=== PATIENT | male | born 1955 | race Caucasian/White ===

== ENCOUNTER 2024-04-09 10:49 | Day surgery (SDC) | payer MEDICARE ==
[~2024-04-09 10:49] MED LIST: ERYT.5TO LEFTEYE; EUTHYROX125 MCG PO; FAMO20; GABA300 PO; Lidocaine HCl 2% 10 ML SDA ONE; MELO7.5; Prozac40 MG PO; ROSUVASTATIN CA10 MG PO; Ropivacaine 0.5% HCL/PF 5 MG/ML 30ML Vial ONE; TAMS.4ER PO; TESTOSTERONE75 G1 TD; TRAZ150T57 PO; WARF10 PO
== END 2024-04-09 11:00 | disposition home or self-care (01) ==
LOC: ORSCSDS 10:49
DX: M79.671 Pain in right foot (principal); M20.5X1 Other deformities of toe(s) (acquired), right foot; M20.11 Hallux valgus (acquired), right foot; Z53.9 Procedure and treatment not carried out, unspecified reason
CPT/HCPCS: J2003; J2795

== ENCOUNTER 2024-04-13 16:11 | Emergency (ER) | payer MEDICARE ==
[~2024-04-13] VITALS: Ht 177.8 cm; Wt 90.7 kg
[~2024-04-13 16:11] MED LIST changes: -Lidocaine HCl 2% 10 ML SDA ONE; -Ropivacaine 0.5% HCL/PF 5 MG/ML 30ML Vial ONE
[2024-04-13] MEDS ORDERED: Diazepam 5 MG / ML 2ML SYR IV ONE (17:50)
[2024-04-13 18:01] LABS: BASOPHILS ABSOLUTE AUTO 0.05 K/mm3 (0.00-0.23); BASOPHILS PERCENT AUTO 1 % (0-2); EOSINOPHILS ABSOLUTE AUTO 0.25 K/mm3 (0.00-0.68); EOSINOPHILS PERCENT AUTO 3 % (0-6); Hematocrit 47.3 % (37.0-53.0); Hemoglobin 16.1 g/dL (13.5-17.5); IMMATURE GRAN ABSOLUTE AUTO 0.03 K/mm3 (0.00-0.10); IMMATURE GRAN PERCENT AUTO 0 % (0-1); LYMPHOCYTES ABSOLUTE AUTO 1.09 K/mm3 (0.84-5.20); LYMPHOCYTES PERCENT AUTO 14 % (21-46); MONOCYTES ABSOLUTE AUTO 0.78 K/mm3 (0.16-1.47); MONOCYTES PERCENT AUTO 10 % (4-13); Mean Corpuscular HGB 31.1 pg (26.0-34.0); Mean Corpuscular Volume 91 fL (80-100); Mean Platelet Volume 9.7 fL (9.1-12.4); NEUTROPHILS ABSOLUTE AUTO 5.61 K/mm3 (1.96-9.15); NEUTROPHILS PERCENT AUTO 72 % (41-73); Platelet Count 183 K/mm3 (150-400); RDW Coefficient Variation 13.6 % (11.7-14.2); RDW Standard Deviation 46.4 fL (35.1-46.3); Red Blood Cell Count 5.18 M/mm3 (4.30-5.90); White Blood Cell Count 7.81 K/mm3 (4.00-11.30)
[2024-04-13 18:15] LABS: International Normalized Ratio 1.36; Prothrombin Time Results 14.2 Sec (9.7-11.5)
[2024-04-13] MEDS ORDERED: Valium5 MG PO (19:19)
[2024-04-13] MEDS ORDERED: OXAYDO5 M1 PO (19:19)
[2024-04-13 19:47] VITALS: BP 119/73
== END 2024-04-13 20:01 | disposition home or self-care (01) ==
LOC: ER 16:11
PROVIDERS: Emergency Medicine
DX: S76.912A Strain of unspecified muscles, fascia and tendons at thigh level, left thigh, initial encounter (principal); W18.40XA Slipping, tripping and stumbling without falling, unspecified, initial encounter; Z88.1 Allergy status to other antibiotic agents; Z79.899 Other long term (current) drug therapy; Z79.890 Hormone replacement therapy; Z79.01 Long term (current) use of anticoagulants
CPT/HCPCS: 76882; 85025; 85610; 96374; 99284-25; J3360

== ENCOUNTER 2024-05-07 10:48 | Day surgery (SDC) | payer MEDICARE ==
[~2024-05-07] VITALS: Ht 177.8 cm; Wt 96.4 kg
[~2024-05-07 10:48] MED LIST changes: +OXAYDO5 M1 PO; +Valium5 MG PO
[2024-05-07] MEDS ORDERED: Lidocaine HCl 2% 10 ML SDA ONE (10:58)
[2024-05-07] MEDS ORDERED: EPINEPhrine HCl 1 MG/ML 1ML Amp ONE (10:59)
[2024-05-07] MEDS ORDERED: CeFAZolin Sodium 2,000 MG VIAL ONE (10:59)
[2024-05-07] MEDS ORDERED: Lactated Ringer's 1,000 ML IV ONE (11:34)
[2024-05-07] MEDS ORDERED: Ondansetron HCl 2 MG / ML 2ML Vial ONE ×2 (11:56→12:34)
[2024-05-07] MEDS ORDERED: Metoclopramide HCl 5MG / ML 2ML Vial ONE ×2 (11:56→12:34)
[2024-05-07] MEDS ORDERED: HYDROmorphone HCl/Pf 1MG SYR ONE (11:57)
--- NOTE | 2024-05-07 12:27 | NUR ---
05/07/24 Lizet Parker 30ML OF BUPIVACAINE 0.5% MIXED AND VERIFIED WITH 0.15ML OF EPI (1MG/ML) TO MAKE BUPIVACAINE 0.5% WTIH EPI 1:200,000 FOR INJECTION AT THE OPSITE.
[2024-05-07] MEDS ORDERED: Bupivacaine 0.5% HCl 5 MG/ML 30MLVIAL INJ ONE (12:33)
[2024-05-07] MEDS ORDERED: Glycopyrrolate 0.2 MG/ML 5ML VIAL ONE (12:48)
[2024-05-07] MEDS ORDERED: Rocuronium Bromide 10 MG/ML 5ML Injection IV ONE (12:48)
[2024-05-07] MEDS ORDERED: Sugammadex Sodium 200 MG/2ML SDV (100 MG/ML) ONE (12:59)
--- NOTE | 2024-05-07 13:32 | NUR ---
05/07/24 1332 Cynthia Avila CAP REFILL LESS THAN 3 SECONDS IN RIGHT TOES. UNABLE TO PALPATE PEDAL PULSE DUE TO DRESSING
--- NOTE | 2024-05-07 14:08 | NUR ---
05/07/24 1408 Cynthia Avila report received from HERMINIO Argueta after break. patient taken to bathroom via wheelchair. voided x1. pt's brought to bedside. pt placed in recliner, tolerating po fluids and snacks well. Per herminio argueta he reviewed discharge instructions. pt and spouse denies further questions at this time.
[2024-05-07 14:22] VITALS: BP 133/84
== END 2024-05-07 14:22 | disposition home or self-care (01) ==
LOC: ORSCSDS 10:48
PROVIDERS: Podiatrist Foot & Ankle Surgery
PROC: 0QSQ04Z Reposition Right Toe Phalanx with Internal Fixation Device, Open Approach (ICD-10-PCS; principal; 2024-05-07 12:00)
PROC: 0QSN04Z Reposition Right Metatarsal with Internal Fixation Device, Open Approach (ICD-10-PCS; principal; 2024-05-07 12:00)
PROC: 0SNP0ZZ Release Right Toe Phalangeal Joint, Open Approach (ICD-10-PCS; principal; 2024-05-07 12:00)
PROC: 0SGP04Z Fusion of Right Toe Phalangeal Joint with Internal Fixation Device, Open Approach (ICD-10-PCS; principal; 2024-05-07 12:00)
DX: M20.11 Hallux valgus (acquired), right foot (principal); M79.671 Pain in right foot; M20.5X1 Other deformities of toe(s) (acquired), right foot; M20.41 Other hammer toe(s) (acquired), right foot; K21.9 Gastro-esophageal reflux disease without esophagitis; E03.9 Hypothyroidism, unspecified; I48.91 Unspecified atrial fibrillation; Z79.899 Other long term (current) drug therapy
CPT/HCPCS: C1713; J0171; J0690; J1171; J2003; J2405; J2765; J7120

== ENCOUNTER → 2024-06-16 | Outpatient (CLI) | payer MEDICARE ==
[2024-06-16 19:20] LABS: BASOPHILS ABSOLUTE AUTO 0.04 K/mm3 (0.00-0.23); BASOPHILS PERCENT AUTO 1 % (0-2); EOSINOPHILS ABSOLUTE AUTO 0.18 K/mm3 (0.00-0.68); EOSINOPHILS PERCENT AUTO 3 % (0-6); Hematocrit 53.5 % (37.0-53.0); IMMATURE GRAN ABSOLUTE AUTO 0.02 K/mm3 (0.00-0.10); IMMATURE GRAN PERCENT AUTO 0 % (0-1); LYMPHOCYTES ABSOLUTE AUTO 1.01 K/mm3 (0.84-5.20); LYMPHOCYTES PERCENT AUTO 15 % (21-46); MONOCYTES PERCENT AUTO 9 % (4-13); Mean Corpuscular HGB Conc 33.6 g/dL (31.5-36.5); Mean Corpuscular Volume 92 fL (80-100); Mean Platelet Volume 10.1 fL (9.1-12.4); NEUTROPHILS ABSOLUTE AUTO 4.76 K/mm3 (1.96-9.15); NEUTROPHILS PERCENT AUTO 72 % (41-73); Platelet Count 205 K/mm3 (150-400); RDW Coefficient Variation 13.2 % (11.7-14.2); RDW Standard Deviation 44.2 fL (35.1-46.3); Red Blood Cell Count 5.81 M/mm3 (4.30-5.90); White Blood Cell Count 6.61 K/mm3 (4.00-11.30)
[2024-06-16 20:02] LABS: Alanine Aminotransfer (ALT/SGP 31 U/L (12-78); Albumin, Blood 4.3 g/dL (3.4-5.0); Albumin/Globulin Ratio 1.4 (0.8-1.8); Alk Phos 78 U/L (50-136); Anion Gap 8 mmol/L (3-11); Aspartate Aminotrans (AST/SGOT 26 U/L (12-37); Bilirubin, Total 0.9 mg/dL (0.1-1.0); Blood Urea Nitrogen 24 mg/dL (8-24); Bun/Creatinine Ratio 26.1 (12.0-20.0); CHOL/HDL RATIO 2.7; CO2, Blood 29 mmol/L (21-32); Calcium, Blood 8.7 mg/dL (8.5-10.1); Chloride, Blood 103 mmol/L (98-108); Cholesterol 147 mg/dL (50-200); Creatinine, Blood 0.92 mg/dL (0.60-1.20); Free Thyroxine 1.09 ng/dL (0.70-1.60); Globulin, Blood 3.1 g/dL (2.2-4.0); Glomerular Filtration Rate 89 (60-); Glucose, Blood 85 mg/dL (70-99); HDL Cholesterol 54 mg/dL (>39); LDL/HDL RATIO 1.5; Low Density Lipoprotein Chol 80 mg/dL (0-110); Potassium, Blood 4.7 mmol/L (3.5-5.5); Sodium, Blood 135 mmol/L (136-145); Total Protein, Blood 7.4 g/dL (6.4-8.2); Triglycerides 63 mg/dL (30-160); Very Low Density Lipoprot Chol 12 mg/dL (6-32)
[2024-06-18 19:43] LABS: HEPATITIS C AB CIA INTERP Negative (Negative); HEPATITIS C ANTIBODY CIA INDEX 0.05 IV
[2024-06-22 06:50] LABS: TESTOSTERONE, FREE BY DIALYSIS 147.8 pg/mL (47.0-244.0); TESTOSTERONE, TOTAL MASS SPEC 783.7 ng/dL (300.0-720.0)
== END | disposition home or self-care (01) ==
LOC: LAB SHORT 15:45 → LAB 15:45
PROVIDERS: Nurse Practitioner Family
DX: Z11.59 Encounter for screening for other viral diseases (principal); E78.5 Hyperlipidemia, unspecified; E03.9 Hypothyroidism, unspecified; E55.9 Vitamin D deficiency, unspecified
CPT/HCPCS: 80053; 80061; 82306; 84402; 84403; 84439; 84443; 85025; 86803